=== PATIENT | male | born 1995 | race African-American/Black ===

== ENCOUNTER 2017-05-22 15:39 | Emergency (ER) | payer SELFPAY ==
[~2017-05-22] VITALS: Ht 180.3 cm; Wt 75.0 kg
[~2017-05-22 15:39] MED LIST: MECL25CH PO
[2017-05-22 15:42] VITALS: BP 132/90; PULSE 70; RESP 15; TEMP 98.1; O2SAT 99
[2017-05-22] MEDS ORDERED: LIDOCAINE HCL 1% 50 ML VIAL XX ONE (17:00)
[2017-05-22] MEDS ORDERED: AZITHROMYCIN 250 MG TAB PO ONE (17:00)
[2017-05-22] MEDS ORDERED: cefTRIAXone 250 MG VIAL IM ONE (17:00)
[2017-05-22] MEDS ORDERED: SODIUM CHLORIDE 0.9% FLUSH 10 ML FLUSH IVF PRN (17:00)
--- NOTE | 2017-05-22 17:03 | PD ---
HPI Chief Complaint: Medical Clearance Time Seen by Provider: 16:54 Travel History International Travel<30 days: No Contact w/Intl Traveler<30days: No Traveled to known affect area: No History of Present Illness HPI The patient is a 21-year-old Ro male who presents to the emergency department for dysuria and penile discharge of 1 week's duration. The patient states his girlfriend from [place] recently moved to [place], they have had unprotected sex, and he subsequently developed dysuria and penile discharge. The penile discharges clear to yellow, associated with dysuria, and mild discomfort with urinating. He denies any testicular pain or swelling. He denies any myalgias, arthralgias, or rash. He does have a history of gonorrhea in the past per his history. Symptoms are mild, exacerbated after sexual intercourse, there are no current alleviating factors. PFSH Past Medical History Narrative Medical gonorrhea Past Surgical History Narrative Surgical Noncontributory Social History Alcohol Use: No Tobacco Use: Yes (SOCIALLY) Substance Use: No Allergies-Medications (Allergen,Severity, Reaction): Coded Allergies: No Known Allergies (Unverified , 11/03/15) Reported Meds & Prescriptions Reported Meds & Active Scripts Active Meclizine Hcl (Meclizine HCl) 25 Mg Chw 25 Mg PO Q8HR PRN Review of Systems Except as stated in HPI: all other systems reviewed are Neg General / Constitutional: No: Fever Gastrointestinal: No: Nausea, Vomiting, Abdominal Pain Genitourinary: Positive: Dysuria, Other (penile discharge) Musculoskeletal: No: Myalgias, Arthralgias Skin: No Rash Physical Exam Narrative GENERAL: Awake, alert, pleasant 21-year-old male who appears his stated age and is in no acute respiratory distress. SKIN: Focused skin assessment warm/dry. HEAD: Atraumatic. Normocephalic. EYES: No injection or drainage. GASTROINTESTINAL: Abdomen soft, non-tender, nondistended. No rebound tenderness. No guarding or rigidity. Back: No CVA tenderness. Genitourinary: Uncircumcised phallus. Foreskin is easily retracted, clear discharge noted at the meatus. Testicles are both descended, nontender, no tenderness of the epididymis. MUSCULOSKELETAL: No obvious deformities. No clubbing. No cyanosis. No edema. NEUROLOGICAL: Awake and alert. No obvious cranial nerve deficits. Motor grossly within normal limits. Normal speech. PSYCHIATRIC: Appropriate mood and affect; insight and judgment normal. Data Data Last Documented VS Vital Signs Date Time Temp Pulse Resp B/P (MAP) Pulse Ox O2 Delivery O2 Flow Rate FiO2 05/22/17 15:42 98.1 70 15 132/90 (104) 99 Orders Orders Urinalysis - C+S If Indicated (05/22/17 16:54) Gc And Chlamydia Pcr (05/22/17 16:54) Azithromycin (Zithromax) (05/22/17 17:00) Ceftriaxone Inj (Rocephin Inj) (05/22/17 17:00) Sodium Chloride 0.9% Flush (Ns Flush) (05/22/17 17:00) Lidocaine 1% Inj (50 Ml) (Xylocaine 1% I (05/22/17 17:00) MDM Medical Decision Making Medical Screen Exam Complete: Yes Emergency Medical Condition: Yes Medical Record Reviewed: Yes Differential Diagnosis Differential diagnosis includes urethritis, gonorrhea, Chlamydia, Trichomonas, epididymitis, STD, UTI. Narrative Course A UA was sent to lab with gonorrhea and chlamydia PCR ordered. The patient was treated empirically with Rocephin 250 mg IM and Zithromax 1 g by mouth. The patient is advised to follow-up with the health department for HIV and syphilis testing. He is also advised to have his sexual partner treated. Diagnosis Primary Impression: Urethritis Patient Instructions: General Instructions Additional Instructions: Follow-up with the health department for HIV and syphilis testing. Have your sexual partner treated. Wear a condom. Med/Other Pt SpecificInfo: No Change to Meds Disposition: 01 DISCHARGE HOME Condition: Stable Michael Alexander MD May 22, 2017 17:03
[2017-05-22 18:18] LABS: BLOOD, URINE NEG (NEG); GLUCOSE,URINE NEG (NEG); KETONE, URINE NEG (NEG); MUCUS URINE FEW /lpf (OCC); NITRITE,URINE NEG (NEG); URINE COLOR YELLOW (YELLW/STRAW)
[2017-05-22 18:21] LABS: BACTERIA, URINE OCC /hpf
[2017-05-22 18:23] LABS: COMMENT (UR) CULTURE INDICATED; CULTURE IF INDICATED CULTURE INDICATED
[2017-05-22 18:34] VITALS: BP 124/76
[2017-05-22 22:12] LABS: CHLAMYDIA PCR NOT DETECTED (NOT DETECT); NEISSERIA PCR NOT DETECTED (NOT DETECT)
== END 2017-05-22 18:54 | disposition home or self-care (01) ==
LOC: NEPC 15:39
DX: N34.2 Other urethritis (principal)
CPT/HCPCS: 81001; 87086; 87491; 87591; 96372; 99284; J0696

== ENCOUNTER 2017-05-25 09:21 | Emergency (ER) | payer OTHER ==
[~2017-05-25] VITALS: Ht 180.3 cm; Wt 72.0 kg
[2017-05-25 09:28] VITALS: BP 130/64; PULSE 62; RESP 16; TEMP 97.9; O2SAT 99
[2017-05-25 09:58] LABS: BLOOD, URINE NEG (NEG); GLUCOSE,URINE NEG (NEG); KETONE, URINE TRACE mg/dL (NEG); NITRITE,URINE NEG (NEG)
[2017-05-25] MEDS ORDERED: metroNIDAZOLE 500 MG TAB PO ONE (10:00)
[2017-05-25] MEDS ORDERED: cefTRIAXone 250 MG VIAL IM ONE (10:00)
[2017-05-25] MEDS ORDERED: AZITHROMYCIN PWD FOR SUSP 1 GM PACKET PO ONE (10:00)
[2017-05-25] MEDS ORDERED: SODIUM CHLORIDE 0.9% FLUSH 10 ML FLUSH IVF PRN (10:00)
[2017-05-25] MEDS ORDERED: LIDOCAINE HCL 1% 50 ML VIAL XX ONE (10:00)
[2017-05-25 10:06] LABS: METHOD OF COLLECTION CLEAN CATCH; URINE COLOR YELLOW (YELLW/STRAW)
--- NOTE | 2017-05-25 10:06 | PD ---
HPI . Dysuria Chief Complaint: Complaint Time Seen by Provider: 09:54 Travel History International Travel<30 days: No Contact w/Intl Traveler<30days: No Traveled to known affect area: No History of Present Illness HPI 21-year-old male presents emergency department for evaluation of dysuria and penile discharge. Patient states he was treated at our facility 2 days ago for possible STD and was told to use a condom during sexual intercourse. Patient had sex with the same person without using proper protection. Patient stated the symptoms were resolving prior to sexual intercourse and now they are returning. The penile discharge is clear and associated with dysuria. The patient denies any testicular pain or swelling. The patient denies any myalgias, arthralgias or rash. The patient denies any hematuria. The patient denies any fevers, chills, vomiting, diarrhea. PFSH Past Medical History Medical History: Denies Significant Hx Past Surgical History Surgical History: No Previous Surgery Social History Alcohol Use: No Tobacco Use: Yes (SOCIALLY) Substance Use: No Allergies-Medications (Allergen,Severity, Reaction): Coded Allergies: No Known Allergies (Unverified Adverse Reaction, Unknown, 05/22/17) Reported Meds & Prescriptions Reported Meds & Active Scripts Active No Active Prescriptions or Reported Medications Review of Systems Except as stated in HPI: all other systems reviewed are Neg Physical Exam Narrative GENERAL: Well-nourished, well-developed 21-year-old male patient in no acute distress. Nontoxic-appearing. SKIN: Focused skin assessment warm/dry. HEAD: Normocephalic. Atraumatic. NECK: Supple, trachea midline. No JVD or lymphadenopathy. CARDIOVASCULAR: Regular rate and rhythm without murmurs, gallops, or rubs. RESPIRATORY: Breath sounds equal bilaterally. No accessory muscle use. GENITOURINARY: Uncircumcised. Foreskin is easily retracted, clear discharge noted at the meatus. White discharge noted circumferentially around the base of the head of the penis. Testicles are both descended, nontender, no tenderness of the epididymis. GASTROINTESTINAL: Abdomen soft, non-tender, nondistended. MUSCULOSKELETAL: No cyanosis, or edema. Data Data Last Documented VS Vital Signs Date Time Temp Pulse Resp B/P (MAP) Pulse Ox O2 Delivery O2 Flow Rate FiO2 05/25/17 09:28 97.9 62 16 130/64 (86) 99 Orders Orders Urinalysis - C+S If Indicated (05/25/17 09:27) Gc And Chlamydia Pcr (05/25/17 09:27) Azithromycin Powd Pack (Zithromax Powd P (05/25/17 10:00) Ceftriaxone Inj (Rocephin Inj) (05/25/17 10:00) Metronidazole (Flagyl) (05/25/17 10:00) Sodium Chloride 0.9% Flush (Ns Flush) (05/25/17 10:00) Lidocaine 1% Inj (50 Ml) (Xylocaine 1% I (05/25/17 10:00) Fluconazole (Diflucan) (05/25/17 10:30) Labs Laboratory Tests Test 05/25/17 09:29 Urine Collection Type CLEAN CATCH Urine Color YELLOW Urine Turbidity CLEAR Urine pH 6.0 Urine Specific [place] 1.035 Urine Protein NEG mg/dL Urine Glucose (UA) NEG mg/dL Urine Ketones TRACE mg/dL Urine Occult Blood NEG Urine Nitrite NEG Urine Bilirubin NEG Urine Leukocyte Esterase NEG Urine RBC 0-3 /hpf Urine WBC 3-5 /hpf Urine Squamous Epithelial Cells 0-5 /hpf Urine Mucus FEW /lpf Microscopic Urinalysis Comment CULT NOT INDICATED Urine Collection Time 10:29 [facility] Medical Decision Making Medical Screen Exam Complete: Yes Emergency Medical Condition: Yes Differential Diagnosis Differential diagnosis includes but not limited to UTI, STD, candidal infection Narrative Course 21-year-old male patient presents emergency department for complaint of dysuria or penile discharge. She was treated 2 days ago with IM Rocephin and by mouth Zithromax but had unprotected sex again with the same partner. The patient states the symptoms were resolving and now they are returning. The cultures were reviewed from 2 days ago and they were negative however it is unknown how specific a GC chlamydia from the male urine is. The patient will be retreated with IM Rocephin and by mouth Zithromax. During the physical examination was noted that there is white discharge in a circumferential distribution around the base of the head of the penis. The patient is uncircumcised and at a higher risk for candidal infection. Patient will be treated with Flagyl to cover for Trichomonas. The patient will be given a one-time dose of fluconazole to cover for the candidal infection that was noted upon physical assessment. The patient will be discharged home with instructions for safe sex and to follow-up with the [facility] for further testing. Diagnosis Primary Impression: Urethritis Referrals: [facility] Dept. Patient Instructions: General Instructions, Safe Sex (ED), Sexually Transmitted Diseases (ED) Additional Instructions: Please return to emergency department if your symptoms return or worsen. Follow up at the [facility] for further testing and possible treatment. Always practice safe sex. Wear condoms. Scripts No Active Prescriptions or Reported Meds Disposition: DISCHARGE HOME Condition: Stable CourtEvelyntera MIGUEL May 25, 2017 10:06
[2017-05-25 10:07] LABS: MUCUS URINE FEW /lpf (OCC)
[2017-05-25 10:08] LABS: COMMENT (UR) CULT NOT INDICATED; CULTURE IF INDICATED CULT NOT INDICATED; RBC, URINE 0-3 /hpf (0-3); SQUAMOUS EPITHELIAL CELL URINE 0-5 /hpf (0-5)
[2017-05-25] MEDS ORDERED: FLUCONAZOLE 200 MG TAB PO ONE (10:30)
[2017-05-25 16:53] LABS: CHLAMYDIA PCR NOT DETECTED (NOT DETECT); NEISSERIA PCR NOT DETECTED (NOT DETECT)
== END 2017-05-25 10:44 | disposition home or self-care (01) ==
LOC: PHEFT 09:21
DX: N34.2 Other urethritis (principal)
CPT/HCPCS: 81001; 87491; 87591; 96372; 99284; J0696

== ENCOUNTER 2017-07-08 21:08 | Emergency (ER) | payer OTHER ==
[2017-07-08 21:09] VITALS: BP 135/75; PULSE 67; RESP 15; TEMP 98; O2SAT 96
--- NOTE | 2017-07-08 21:31 | PD ---
HPI Chief Complaint: ENT Complaint Time Seen by Provider: 21:22 Travel History International Travel<30 days: No Contact w/Intl Traveler<30days: No Traveled to known affect area: No History of Present Illness HPI This patient complains of problems with his right ear. He was trying to clean out ear wax with a Q-tip and thinks he injured his ear. He reports his hearing is decreased. Symptoms severity is moderate. Duration 1 hour. PFSH Social History Alcohol Use: No Tobacco Use: Yes (SOCIALLY) Substance Use: No Allergies-Medications (Allergen,Severity, Reaction): Coded Allergies: No Known Allergies (Unverified Adverse Reaction, Unknown, 05/22/17) Reported Meds & Prescriptions Reported Meds & Active Scripts Active No Active Prescriptions or Reported Medications Review of Systems General / Constitutional: No: Fever HENT: No: Headaches Cardiovascular: No: Chest Pain or Discomfort Respiratory: No: Cough Physical Exam Narrative SKIN: Focused skin assessment reveals no rash or ulcers. Skin is warm and dry. Palpation shows no induration or nodules. NECK: Symmetrical appearance, midline trachea. No mass or crepitus. Thyroid without enlargement, tenderness, or mass. Left TM is normal Right TM has a large hole in the center of it. There is a scant amount of blood in the canal. Pinna looks normal Data Data Last Documented VS Vital Signs Date Time Temp Pulse Resp B/P (MAP) Pulse Ox O2 Delivery O2 Flow Rate FiO2 07/08/17 21:09 98.0 67 15 135/75 (95) 96 Room Air MDM Medical Decision Making Medical Screen Exam Complete: Yes Emergency Medical Condition: Yes Medical Record Reviewed: Yes Differential Diagnosis TM rupture, otitis, foreign body Narrative Course I have reviewed the patient's electronic medical record. Patient has a ruptured right TM from using a Q-tip too vigorously. He is advised to keep the right ear clean and dry No swimming Earplug for showering ENT recommendation given Diagnosis Primary Impression: Tympanic membrane rupture, traumatic Qualified Codes: S09.21XA - Traumatic rupture of right ear drum, initial encounter Additional Instructions: Follow-up with ENT physician Keep right ear clean and dry Med/Other Pt SpecificInfo: Other Scripts No Active Prescriptions or Reported Meds Disposition: 01 DISCHARGE HOME Condition: Stable Connor Fernandez MD Jul 08, 2017 21:31
== END 2017-07-08 21:45 | disposition home or self-care (01) ==
LOC: NEPD 21:08
DX: H72.91 Unspecified perforation of tympanic membrane, right ear (principal); W45.8XXA Other foreign body or object entering through skin, initial encounter; Y93.E8 Activity, other personal hygiene
CPT/HCPCS: 99282